=== PATIENT | female | born 1985 | race African-American/Black ===

== ENCOUNTER 2017-12-07 17:41 | Emergency (ER) | payer OTHER ==
[~2017-12-07] VITALS: Ht 149.9 cm; Wt 80.7 kg
[~2017-12-07 17:41] MED LIST: NORCO 5-325 TA1 EACH PO; PENICILLIN VK500 M1 PO; PEPCID20 MG PO
[2017-12-07 19:40] LABS: URINE BILIRUBIN NEGATIVE (Negative); URINE BLOOD NEGATIVE (Negative); URINE CLARITY CLEAR; URINE COLOR YELLOW; URINE GLUCOSE-RANDOM* NEGATIVE (Negative); URINE KETONES NEGATIVE (Negative); URINE LEUKOCYTES NEGATIVE (Negative); URINE NITRITE NEGATIVE (Negative); URINE PROTEIN (DIPSTICK) NEGATIVE (Negative); URINE UROBILINOGEN 0.2 E.U./dl (0.2-1.0)
[2017-12-07] MEDS ORDERED: TIZANIDINE HCL4 MG PO (19:55)
[2017-12-07] MEDS ORDERED: IBUPROFEN 600600 M1 PO (19:55)
== END 2017-12-07 20:14 | disposition home or self-care (01) ==
LOC: ER 17:41
PROVIDERS: Nurse Practitioner
DX: S20.229A Contusion of unspecified back wall of thorax, initial encounter (principal); S40.012A Contusion of left shoulder, initial encounter; S40.011A Contusion of right shoulder, initial encounter; S10.93XA Contusion of unspecified part of neck, initial encounter; V89.2XXA Person injured in unspecified motor-vehicle accident, traffic, initial encounter; Y93.I9 Activity, other involving external motion; Y92.89 Other specified places as the place of occurrence of the external cause; Y99.8 Other external cause status